=== PATIENT | female | born 1985 | race African-American/Black ===

== ENCOUNTER 2022-09-09 03:02 | Emergency (ER) | payer MEDICAID ==
[~2022-09-09] VITALS: Ht 162.6 cm; Wt 83.0 kg
[2022-09-09 03:13] VITALS: BP 148/72
[2022-09-09 03:47] LABS: HEMOGLOBIN 12.4 g/dL (12.0-16.0); MEAN CORPUSCULAR HEMOGLOBIN 30.8 pg (28.0-32.0); MEAN CORPUSCULAR VOLUME 92.1 fL (81.0-99.0); PLATELET 197 x1000/uL (130-400); RED BLOOD CELL COUNT 4.02 mill/uL (4.2-5.4); RED CELL DISTRIBUTION WIDTH 14.1 % (11.6-14.6)
[2022-09-09 03:59] LABS: CHLORIDE 109 mEq/L (98-107)
[2022-09-09] MEDS ORDERED: FURO20TA4 MT (06:40)
[2022-09-09] MEDS ORDERED: POTA-205 MT (06:40)
== END 2022-09-09 08:12 | disposition home or self-care (01) ==
LOC: ER 03:02
DX: R60.0 Localized edema (principal)
CPT/HCPCS: 36415; 71045; 80048; 83880; 85027; 85379; 93970; 99285